=== PATIENT | female | born 1980 | race Caucasian/White ===

== ENCOUNTER 2021-04-07 14:32 | Outpatient (REF) | payer BC, SELFPAY | END 2021-04-07 14:33 | disposition home or self-care (01) | LOC: HO.SCI 14:32 | PROVIDERS: Visit Provider Nurse Practitioner Family | DX: Z13.89 Encounter for screening for other disorder (principal) ==

== ENCOUNTER 2021-04-12 17:51 | Outpatient (REF) | payer BC, SELFPAY ==
--- NOTE | ~2021-04-12 | MR_ITS ---
MR BRAIN WITHOUT AND WITH CONTRAST CLINICAL INFORMATION: Hallucinations. EEG demonstrating bilateral temporal sharp waves. COMPARISON: None available. TECHNIQUE: Multiplanar, multisequence MRI of the brain was obtained before and after the intravenous administration of 10 mL Gadavist. FINDINGS: There is no pathologic intracranial enhancement. No parenchymal signal abnormality. There is no hydrocephalus, extra-axial surface collection, or herniation. The major flow voids at the skull base are preserved. There is no acute infarct on diffusion-weighted imaging. There is no intracranial hemorrhage on the gradient recalled echo acquisition. The midline structures are normal. The cerebellar tonsils are normally positioned. The cerebellum and brainstem are normal. The craniocervical junction is normal. Osseous marrow signal intensity is homogenous. The visualized soft tissues are unremarkable. MR/MR head/brain wo/w con IMPRESSION: Unremarkable MRI of the brain. Of note, no coronal FLAIR imaging was obtained, limiting assessment of the temporal lobes. If there is continued clinical concern for a temporal lobe seizure focus, the patient can return for coronal T2 and coronal FLAIR imaging.
== END 2021-04-12 17:52 | disposition home or self-care (01) ==
LOC: HO.MRI 17:51
PROVIDERS: Visit Provider Nurse Practitioner Family
DX: R44.3 Hallucinations, unspecified (principal); R94.31 Abnormal electrocardiogram [ECG] [EKG]
CPT/HCPCS: 70553; A9585

== ENCOUNTER 2021-04-29 18:19 | Outpatient (REF) | payer BC, SELFPAY | END 2021-04-29 18:20 | disposition home or self-care (01) | LOC: HO.MRI 18:19 | PROVIDERS: Visit Provider Nurse Practitioner Family | DX: Z13.89 Encounter for screening for other disorder (principal) ==

== ENCOUNTER → 2021-12-08 08:21 | Outpatient (BNVA) | payer BC, SELFPAY | PROVIDERS: Visit Provider Nurse Practitioner Family | DX: Z13.89 Encounter for screening for other disorder (principal) ==

== ENCOUNTER → 2022-10-12 14:39 | Outpatient (BNVA) | payer BC, SELFPAY | PROVIDERS: Visit Provider Nurse Practitioner Family | DX: Z13.89 Encounter for screening for other disorder (principal) ==

== ENCOUNTER 2023-04-25 14:28 | Outpatient (AMB) | payer BC, SELFPAY ==
--- NOTE | 2023-04-25 14:41 | MHC.OFFVIS ---
Intake Vital Signs 04/25/23 14:57 Weight 222 lb BP 120/84 Blood Pressure Location Rt brachial Position Sitting Pulse 74 Pulse Source Pulse Oximeter Pulse Oximetry (%) 100 Oxygen Delivery Method Room Air Intake Visit Reasons: 6m Follow up Intake Note: Patient present today for 6 month Hypersomnia follow up visit. Patient states the medication seems to be working. She has been having more nightmares. Allergies Sulfa (Sulfonamide Antibiotics) Allergy (Mild, Verified 04/25/23 14:45) Hives Medication List - Last Reconciled 04/25/23 by Debi Stallings, CHARLES lamotrigine 100 mg PO BID 30 days methylphenidate HCl (Ritalin) 10 mg PO QPM 60 days methylphenidate HCl (Ritalin LA) 20 mg PO QAM 60 days HPI HPI Comments History of Present Illness Details 42-yr-old female presents for f/u visit. Pt denies any significant interval medical changes. No interval seizure like activity. Pt cognition is stable on current methylphenidate dose. She can sometimes be more unfocused- thinks maybe r/t stress, depression, etc. Has been having more vivid dreams and bad dreams. [facility] Medical History Dyslipidemia Surgical History No pertinent past surgical history Family History Father HTN (hypertension) Mother Diabetes HTN (hypertension) Social History Alcohol intake: current Alcohol intake frequency: holidays/special occasions only Patient Tobacco Use Status: Never used Tobacco Review of Systems Const All systems reviewed & are unremarkable except as noted in HPI and below Physical Exam Vital Signs: Last Vital Signs Pulse 74 04/25/23 14:57 BP 120/84 04/25/23 14:57 Pulse Ox 100 04/25/23 14:57 Oxygen Delivery Method Room Air 04/25/23 14:57 Const General: cooperative and no acute distress Orientation/consciousness: patient oriented x3 HEENT Head: Yes normocephalic Resp Effort & Inspection: normal respiratory effort and able to speak in complete sentences Neuro General: patient oriented x3, gait normal and CN's II-XI intact bilaterally Cognition (Neuro): normal cognition Motor exam (neuro): 5/5 motor strength present throughout Psych Appearance: grossly normal Mental Status: mental status grossly normal Speech and movement: Normal speech and movement present Affect: normal affect Attitude: cooperative Thought process: Normal thought process present Thought content: Normal thought content present Insight: Good insight present (Psych) Judgement: Good judgement present (Psych) Assessment & Plan Assessment & Plan (1) Attention deficit hyperactivity disorder (ADHD): Code(s): F90.9 - Attention-deficit hyperactivity disorder, unspecified type (2) Depression: Code(s): F32.A - Depression, unspecified (3) Nightmares: Code(s): F51.5 - Nightmare disorder (4) Hypersomnia: Code(s): G47.10 - Hypersomnia, unspecified (5) Seizure: Code(s): R56.9 - Unspecified convulsions Plan For hypersomnia/ADHD: Continue Methylphenidate LA 20mg qam. Continue Methylphenidate 10mg qpm prn. For mood: Will refer to psychology. ? For seizures: Continue Lamotrigine 100mg bid. Check CBC, CMP, lamotrigine levels f/u in 6 months or sooner prn Orders: Orders Complete Blood Count Auto Diff 04/25/23 R56.9 - Unspecified convulsions Lamotrigine Lamictal 04/25/23 R56.9 - Unspecified convulsions Comprehensive Met. Panel 04/25/23 R56.9 - Unspecified convulsions Referrals Psychology Referral F32.A - Depression, unspecified, F51.5 - Nightmare disorder, F90.9 - Attention-deficit hyperactivity disorder, unspecified type Coding Level of Care Code Est Pt Level 4 (21273) Diagnoses Attention deficit hyperactivity disorder (ADHD) F90.9 Depression F32.A Nightmares F51.5 Hypersomnia G47.10 Seizure R56.9
[2023-04-25 14:57] VITALS: BP 120/84; PULSE 74; O2SAT 100
== END 2023-04-25 15:27 | disposition home or self-care (01) ==
PROVIDERS: Visit Provider Nurse Practitioner Family
DX: F90.9 Attention-deficit hyperactivity disorder, unspecified type (principal); F32.A Depression, unspecified; F51.5 Nightmare disorder; G47.10 Hypersomnia, unspecified; R56.9 Unspecified convulsions
CPT/HCPCS: 99214

== ENCOUNTER → 2023-04-25 14:28 | Outpatient (BNVA) | payer BC, SELFPAY | PROVIDERS: Visit Provider Nurse Practitioner Family ==

== ENCOUNTER 2023-10-25 13:01 | Outpatient (AMB) | payer BC, SELFPAY ==
--- NOTE | 2023-10-25 13:05 | A.OFFVIS_ITS ---
Vital Signs 10/25/23 13:06 Height 5 ft 9 in Weight 224 lb BMI 33.1 BP 138/74 Blood Pressure Location Rt brachial Position Sitting Pulse 73 Pulse Source Pulse Oximeter Pulse Oximetry (%) 98 Oxygen Delivery Method Room Air Intake Visit Reasons: 6 mnts f/u appt - Confirmed Intake Note: Patient presents for 6 months follow up. Patient is doing ok meds are working very well. Allergies Sulfa (Sulfonamide Antibiotics) Allergy (Mild, Verified 10/25/23 13:07) Hives HPI Comments Details: 43-yr-old female presents for f/u visit. Pt denies any significant interval medical changes. She had some increased stress as her mom had strokes, and is now living with her. She can be anxious at times. She did have a psychiatric consult at [facility] for input in optimizing pt's mood s/s, recomendations where to start w/ trial of escitalopram and prn hydroxyzine. Her sleep has been ok, but can still have vivid and nightmares. Her ADHD s/s are well-controlled on Methylphenidate LA 20mg qam and IR 10mg prn. She did see a psychiatrist. She is seeing a therapist, who suggested trying lucid dreaming tx. [facility] Medical History Dyslipidemia Surgical History No pertinent past surgical history Family History Father HTN (hypertension) Mother Diabetes HTN (hypertension) Social History Alcohol intake: current Alcohol intake frequency: holidays/special occasions only Patient Tobacco Use Status: Never used Tobacco Physical Exam Vital Signs: Last Vital Signs Pulse 73 10/25/23 13:06 BP 138/74 10/25/23 13:06 Pulse Ox 98 10/25/23 13:06 Oxygen Delivery Method Room Air 10/25/23 13:06 BMI result Body Mass Index 33.1 Const General: cooperative and no acute distress Orientation/consciousness: patient oriented x3 Resp Effort & Inspection: normal respiratory effort and able to speak in complete sentences Neuro General: patient oriented x3 Cranial nerves: Yes CN's II-XII intact bilaterally Cognition (Neuro): normal cognition Psych Appearance: grossly normal Mental Status: mental status grossly normal Speech and movement: Normal speech and movement present Affect: normal affect Attitude: cooperative Assessment & Plan Assessment & Plan (1) Seizure: Code(s): R56.9 - Unspecified convulsions Category: Medical (2) Hypersomnia: Code(s): G47.10 - Hypersomnia, unspecified Category: Medical (3) Attention deficit hyperactivity disorder (ADHD): Code(s): F90.9 - Attention-deficit hyperactivity disorder, unspecified type Category: Medical (4) Depression: Code(s): F32.A - Depression, unspecified Category: Medical (5) Nightmares: Code(s): F51.5 - Nightmare disorder Category: Medical (6) Anxiety: Code(s): F41.9 - Anxiety disorder, unspecified Category: Medical Plan For hypersomnia/ADHD: Continue Methylphenidate LA 20mg qam. Continue Methylphenidate 10mg qpm prn. ? For mood: Reviewed [facility] psychiatry consult. Start Escitalopram 5mg qd x's 1 wk, then increase to 10mg qd. Trial Hydroxyzine 10mg bid prn anxiety. ? For seizures: Continue Lamotrigine 100mg bid. Check CBC, CMP, lamotrigine levels- in 1-2 months. ? f/u in 6 months or sooner prn Medications: New escitalopram oxalate 5mg qd x's 7 days, then 1 tab qd orally daily; 30 tabs 3RF 30 days hydroxyzine HCl 10 mg PO BID PRN 30 tabs 1RF itching 30 days Refilled methylphenidate HCl LA (Ritalin LA) For ADHD 20 mg PO QAM 60 caps 0RF 60 days methylphenidate HCl (Ritalin) for ADHD 10 mg PO QPM 60 tabs 0RF 60 days
[2023-10-25 13:06] VITALS: BP 138/74; PULSE 73; O2SAT 98; BMI 33.1
== END 2023-10-25 13:49 | disposition home or self-care (01) ==
PROVIDERS: Visit Provider Nurse Practitioner Family
DX: R56.9 Unspecified convulsions (principal); G47.10 Hypersomnia, unspecified; F90.9 Attention-deficit hyperactivity disorder, unspecified type; F32.A Depression, unspecified; F51.5 Nightmare disorder; F41.9 Anxiety disorder, unspecified
CPT/HCPCS: 99214

== ENCOUNTER → 2023-10-25 13:01 | Outpatient (BNVA) | payer BC, SELFPAY | PROVIDERS: Visit Provider Nurse Practitioner Family ==

== ENCOUNTER 2024-04-29 13:13 | Outpatient (AMB) | payer BC, SELFPAY ==
--- NOTE | 2024-04-29 13:13 | MHC.OFFVIS ---
Vital Signs 04/29/24 13:14 Height 5 ft 9 in Weight 220 lb BMI 32.5 BP 124/82 Blood Pressure Location Rt brachial Position Sitting Intake Visit Reasons: Follow up Intake Note: Patient presents for follow up. Allergies Sulfa (Sulfonamide Antibiotics) Allergy (Mild, Verified 04/29/24 13:17) Hives Medication List - Last Reconciled 04/29/24 by CHARLES Robbins escitalopram oxalate 5mg qd x's 7 days, then 1 tab qd orally daily; 30 days hydroxyzine HCl 10 mg PO BID PRN 30 days lamotrigine 100 mg PO BID 30 days methylphenidate HCl (Ritalin) 10 mg PO QPM 60 days methylphenidate HCl LA (Ritalin LA) 20 mg PO QAM 60 days HPI Comments Details: 43-yr-old female presents for f/u visit of sleep issues, seizure. Pt denies any significant interval medical changes. She still has some increased stress, as her mother has moved into her home and she is awaiting her roommate to move out. Thus, she herself has been sleeping on her couch and sleep schedule is now based on her mother's schedule- as pt is helping her mom get ready for bed. Her ADHD s/s are well-controlled at work on Methylphenidate LA 20mg qam and IR 10mg prn, though there may be moments where she is not productive but usually related to just general day to life life. She has tolerated starting escitaloram well- her mood is good. Tolerating well. She has used hydroxyzine just a few times for some increased anxiety. She continues to have vivid dreams- but no recent nightmares. The escitalopram seems to have reduced the more bothersome bad dreams. She has not had any seizure like activity. She did have a one-time psychiatry consult. She does need a new therapist, as her previous one was focusing too much on lucid dreaming tx. [facility] Medical History Dyslipidemia Surgical History No pertinent past surgical history Family History Father HTN (hypertension) Mother Diabetes HTN (hypertension) Social History Alcohol intake: current Alcohol intake frequency: holidays/special occasions only Patient Tobacco Use Status: Never used Tobacco Physical Exam Vital Signs: Last Vital Signs BP 124/82 04/29/24 13:14 BMI result Body Mass Index 32.5 Const General: cooperative and no acute distress Orientation/consciousness: patient oriented x3 Resp Effort & Inspection: normal respiratory effort and able to speak in complete sentences Neuro General: patient oriented x3 Cranial nerves: Yes CN's II-XII intact bilaterally Cognition (Neuro): normal cognition Psych Appearance: grossly normal Mental Status: mental status grossly normal Speech and movement: Normal speech and movement present Affect: normal affect Attitude: cooperative Assessment & Plan Assessment & Plan (1) Seizure: Code(s): R56.9 - Unspecified convulsions Category: Medical (2) Hypersomnia: Code(s): G47.10 - Hypersomnia, unspecified Category: Medical (3) Attention deficit hyperactivity disorder (ADHD): Code(s): F90.9 - Attention-deficit hyperactivity disorder, unspecified type Category: Medical (4) Depression: Code(s): F32.A - Depression, unspecified Category: Medical (5) Nightmares: Code(s): F51.5 - Nightmare disorder Category: Medical (6) Anxiety: Code(s): F41.9 - Anxiety disorder, unspecified Category: Medical Plan For hypersomnia/ADHD: Continue Methylphenidate LA 20mg qam. Continue Methylphenidate 10mg qpm prn. ? For mood: Previously reviewed [facility] psychiatry consult. Continue Escitalopram 10mg qd. Continue Hydroxyzine 10mg bid prn anxiety. ? For seizures: Continue Lamotrigine 100mg bid. Check CBC, CMP, lamotrigine levels. ? Pt to follow-up in 6 months or sooner prn. Orders: Orders Comprehensive Met. Panel 04/29/24 R56.9 - Unspecified convulsions Lamotrigine Lamictal 04/29/24 R56.9 - Unspecified convulsions Complete Blood Count Auto Diff 04/29/24 R56.9 - Unspecified convulsions Medications: Changed From escitalopram oxalate 5mg qd x's 7 days, then 1 tab qd orally daily; 30 days 30 tabs 3RF To escitalopram oxalate 10 mg PO DAILY 90 tabs 1RF 90 days Coding Level of Care Code Est Pt Level 4 (01717) Diagnoses Seizure R56.9 Hypersomnia G47.10 Attention deficit hyperactivity disorder (ADHD) F90.9 Depression F32.A Nightmares F51.5 Anxiety F41.9
[2024-04-29 13:14] VITALS: BP 124/82; BMI 32.5
== END 2024-04-29 14:32 | disposition home or self-care (01) ==
PROVIDERS: Visit Provider Nurse Practitioner Family
DX: R56.9 Unspecified convulsions (principal); G47.10 Hypersomnia, unspecified; F90.9 Attention-deficit hyperactivity disorder, unspecified type; F32.A Depression, unspecified; F51.5 Nightmare disorder; F41.9 Anxiety disorder, unspecified
CPT/HCPCS: 99214

== ENCOUNTER → 2024-04-29 13:13 | Outpatient (BNVA) | payer BC, SELFPAY | PROVIDERS: Visit Provider Nurse Practitioner Family ==

== ENCOUNTER 2024-10-29 10:08 | Outpatient (AMB) | payer BC, SELFPAY ==
--- NOTE | 2024-10-29 10:19 | MHC.OFFVIS ---
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 Pt denies any significant interval medical changes. She still has some increased stress, as her mother moved into her home and she is still awaiting her roommate to move out- but the roommate is now moving out soon. so pt will again be able to sleep in her bedroom. Her ADHD s/s are well-controlled at work on Methylphenidate LA 20mg qam and IR 10mg prn. Tries to manage distractions. She is still tolerating escitaloram well- her mood is good. She has not needed to use hydroxyzine recently. She continues to have vivid dreams- but no recent severe nightmares. The escitalopram still seems to have reduced the more bothersome bad dreams. She has not had any seizure like activity. She did have a one-time psychiatry consult. She does have a new therapist, who she likes. [facility] Medical History Dyslipidemia Surgical History No pertinent past surgical history Family History Father HTN (hypertension) Mother Diabetes HTN (hypertension) Social History Alcohol intake: current Alcohol intake frequency: holidays/special occasions only Patient Tobacco Use Status: Never used Tobacco Physical Exam Vital Signs: Last Vital Signs Pulse 87 10/29/24 10:21 BP 130/70 10/29/24 10:21 Pulse Ox 97 10/29/24 10:21 Oxygen Delivery Method Room Air 10/29/24 10:21 BMI result Body Mass Index 32.8 Const General: cooperative and no acute distress Orientation/consciousness: patient oriented x3 Resp Effort & Inspection: normal respiratory effort and able to speak in complete sentences Neuro General: patient oriented x3 Cranial nerves: Yes CN's II-XII intact bilaterally Cognition (Neuro): normal cognition Psych Appearance: grossly normal Mental Status: mental status grossly normal Speech and movement: Normal speech and movement present Affect: normal affect Attitude: cooperative Assessment & Plan Assessment & Plan (1) Seizure: Code(s): R56.9 - Unspecified convulsions Category: Medical (2) Hypersomnia: Code(s): G47.10 - Hypersomnia, unspecified Category: Medical (3) Attention deficit hyperactivity disorder (ADHD): Code(s): F90.9 - Attention-deficit hyperactivity disorder, unspecified type Category: Medical (4) Depression: Code(s): F32.A - Depression, unspecified Category: Medical (5) Nightmares: Code(s): F51.5 - Nightmare disorder Category: Medical (6) Anxiety: Code(s): F41.9 - Anxiety disorder, unspecified Category: Medical Plan For hypersomnia/ADHD: Continue Methylphenidate LA 20mg qam. Continue Methylphenidate 10mg qpm prn. ? For mood: Previously reviewed [facility] psychiatry consult. Continue Escitalopram 10mg qd. Continue Hydroxyzine 10mg bid prn anxiety. ? For seizures: Continue Lamotrigine 100mg bid. Check CBC, CMP, lamotrigine levels- we will mail lab slips patient ? Pt to follow-up in 6 months or sooner prn. Orders: Orders Complete Blood Count Auto Diff Today R56.9 - Unspecified convulsions Lamotrigine Lamictal Today R56.9 - Unspecified convulsions Comprehensive Met. Panel Today R56.9 - Unspecified convulsions Medications: Refilled lamotrigine 100 mg PO BID 30 days 60 tabs 6RF methylphenidate HCl (Ritalin) for ADHD 10 mg PO QPM 60 days 60 tabs 0RF methylphenidate HCl LA (Ritalin LA) For ADHD 20 mg PO QAM 60 days 60 caps 0RF Coding Level of Care Code Est Pt Level 4 (33804) Diagnoses Seizure R56.9 Hypersomnia G47.10 Attention deficit hyperactivity disorder (ADHD) F90.9 Depression F32.A Nightmares F51.5 Anxiety F41.9
[2024-10-29 10:21] VITALS: BP 130/70; PULSE 87; O2SAT 97; BMI 32.8
--- OUTSIDE RECORDS SUMMARY | 2024-10-29 11:48 | XMS_ITS | Data Portability ---
Author Organization [facility], [address] Address [address] [place] [address] Assessment No assessment recorded. Plan of Treatment Reminders Order Date Submit Date Provider Last Modified By Organization Details Last Modified Time Details Appointments None recorded. Lab None recorded. Referral otolaryngol ogist referral - Ongoing ear pain , has been treated with antibiotic and steroid in the past 2022 023 [email or web address] [facility] , [address], [place], [address], 3 18:17:09 Procedures None recorded. Surgeries None recorded. Imaging None recorded. Medication Orders amoxicillin 875 mg-potassiu m clavulanate 125 mg tablet 2022 023 [facility] #1130, [phone] [place], [address], 3 08:17:34 fexofenadin e-pseudoeph edrine ER 180 mg-240 mg tablet,ext. release 24 hr 2022 023 [facility] #1130, [phone] [place], [address], 3 08:32:20 prednisone 20 mg tablet 2022 023 [facility] #1130, [phone] [place], [address], 3 08:32:19 Allergy Relief (fluticason e) 50 mcg/actuati on nasal spray,suspe nsion 2022 023 [facility]armacy #5855, [phone] [place], [address], 08:32:19 Patient TargetsNo targets recorded. Patient Instructions Encounter Date Encounter Id Patient Instructions Last Modified By Organization Details Last Modified Time 12/15/2022 [id number] earache: care instructions Not available 12/15/2022 08:32:16 ear infection (otitis media): care instructions Not available 12/15/2022 08:32:15 Sinusitis is an infection of the lining of the sinus cavities in your head. Sinusitis often follows a cold. It causes pain and pressure in your head and face. In most cases, sinusitis gets better on its own in 1 to 2 weeks. But some mild symptoms may last for several weeks. Sometimes antibiotics are needed. if you are having problems. It's also a good idea to know your test results and keep a list of the medicines you take. How can you care for yourself at home? Take an sfdd-pjw-jbdqutm pain medicine. Avoid Ibuprofen, Aleve and Aspirin if . If the doctor prescribed antibiotics, take them as directed. Do not stop taking them just because you feel better. You need to take the full course of antibiotics. Be careful when taking bvss-deu-uiigncz cold or influenza (flu) medicines and Tylenol at the same time. Many of these medicines have acetaminophen, which is Tylenol. Read the labels to make sure that you are not taking more than the recommended dose. Too much acetaminophen (Tylenol) can be harmful. Breathe warm, moist air from a steamy shower, a hot bath, or a sink filled with hot water. Avoid cold, dry air. Using a humidifier in your home may help. Follow the directions for cleaning the machine. Use saline (saltwater) nasal washes. This can help keep your nasal passages open and wash out mucus and bacteria. You can buy saline nose drops at a grocery store or drugstore. Or you can make your own at home by adding 1 teaspoon (5 millilitres) of salt and 1 teaspoon (5 millilitres) of baking soda to 2 cups (500 mL) of distilled water. If you make your own, fill a bulb syringe with the solution, insert the tip into your nostril, and squeeze gently. Blow your nose. Put a hot, wet towel or a warm gel pack on your face 3 or 4 times a day for 5 to 10 minutes each time. Try a decongestant nasal spray like oxymetazoline (Drixoral). Do not use it for more than 3 days in a row. Using it for more than 3 days can make your congestion worse. Not available 12/15/2022 08:32:14 12/21/2022 [id number] earache: care instructions [email or web address] Not available 12/21/2022 08:17:32 ear infection (otitis media): care instructions [email or web address] Not available 12/21/2022 08:17:32 An ear infection may start with a cold and affect the middle ear (otitis media). It can hurt a lot. Most ear infections clear up on their own in a couple of days and do not need antibiotics. Also, antibiotics do not work against viruses, which may be the cause of your infection. Regular doses of pain relievers are the best way to reduce your fever and help you feel better. How can you care for yourself at home? Take pain medicines exactly as directed. If the doctor gave you a prescription medicine for pain, take it as prescribed. If you are not taking a prescription pain medicine, take an fzzh-uvo-zavzdgd medicine, such as acetaminophen (Tylenol), ibuprofen (Advil, Motrin), or naproxen (Aleve). Read and follow all instructions on the label. Do not take two or more pain medicines at the same time unless the doctor told you to. Many pain medicines have acetaminophen, which is Tylenol. Too much acetaminophen (Tylenol) can be harmful. Plan to take a full dose of pain reliever before bedtime. Getting enough sleep will help you get better. Try a warm, moist face cloth on the ear. It may help relieve pain. If your doctor prescribed antibiotics, take them as directed. Do not stop taking them just because you feel better. You need to take the full course of antibiotics. Not available 12/21/2022 08:17:58 Sinusitis is an infection of the lining of the sinus cavities in your head. Sinusitis often follows a cold. It causes pain and pressure in your head and face. In most cases, sinusitis gets better on its own in 1 to 2 weeks. But some mild symptoms may last for several weeks. Sometimes antibiotics are needed. if you are having problems. It's also a good idea to know your test results and keep a list of the medicines you take. How can you care for yourself at home? Take an wcqb-qtx-eavmusa pain medicine. Avoid Ibuprofen, Aleve and Aspirin if . If the doctor prescribed antibiotics, take them as directed. Do not stop taking them just because you feel better. You need to take the full course of antibiotics. Be careful when taking xahe-ugy-utfkovw cold or influenza (flu) medicines and Tylenol at the same time. Many of these medicines have acetaminophen, which is Tylenol. Read the labels to make sure that you are not taking more than the recommended dose. Too much acetaminophen (Tylenol) can be harmful. Breathe warm, moist air from a steamy shower, a hot bath, or a sink filled with hot water. Avoid cold, dry air. Using a humidifier in your home may help. Follow the directions for cleaning the machine. Use saline (saltwater) nasal washes. This can help keep your nasal passages open and wash out mucus and bacteria. You can buy saline nose drops at a grocery store or drugstore. Or you can make your own at home by adding 1 teaspoon (5 millilitres) of salt and 1 teaspoon (5 millilitres) of baking soda to 2 cups (500 mL) of distilled water. If you make your own, fill a bulb syringe with the solution, insert the tip into your nostril, and squeeze gently. Blow your nose. Put a hot, wet towel or a warm gel pack on your face 3 or 4 times a day for 5 to 10 minutes each time. Try a decongestant nasal spray like oxymetazoline (Drixoral). Do not use it for more than 3 days in a row. Using it for more than 3 days can make your congestion worse. Not available 12/21/2022 08:17:31 01/22/2023 [id number] eustachian tube problems: care instructions [email or web address] Not available 01/22/2023 18:13:00 Based on your physical exam and presentation, you are being diagnosed with Eustachian Tube Dysfunction. This occurs when fluid/mucous or swelling closes off the tubes that help the ears equalize the pressure. The following are my recommendations to help with these symptoms and get this condition to resolve: 1. Saline Nasal [place] 2. Antihistamines like Claritin, Zyrtec, Addis, or benadryl 3. Tylenol for discomfort and help with the inflammation. 4. Heating pad or warm rice back to help with the discomfort 5. You can try sudafed, but I would not take this more than 5 days. This may overly dry out your throat and chest and cause symptoms. Unfortunately this condition may last 1-5 months, but usually resolves on its own. If this does not improve in 2-3 months - an ENT would be the appropriate next step. Sometimes people will require Tubes to be placed temporarily. Thank you for using [facility], if you have any questions or concerns please do not hesitate to call or reach out to us. 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 Medical Equipment None Reported. Allergies Allergen ID Allergen Name Allergen Category Reaction Reaction Severity Criticality Documentation Date Start Date Code Code System Note Provider Name and Address Organization Details Recorded Time 926917 Substance with sulfonami de structure and antibacte rial mechanism of action (substanc e) medicatio n rash Not available Not available 12/15/2022 [id number] SNOMED BERNARD Asher [facility] 3 08:23:11 Medications Name Sig Start Date Stop Date Status Note LastModified by Organization Details LastModified Time methylphenid ate 10 mg tablet TAKE 1 TABLET BY MOUTH EVERY EVENING FOR 60 DAYS FOR ADHD active Not Available Not Available No t Available prednisone 20 mg tablet Take 2 tablets every day by oral route in the morning for 4 days. 2022 active Not Available Not Available Not Avai lable fluticasone propionate 50 mcg/actuatio n nasal spray,suspen fernando SPRAY 1 SPRAY BY INTRANASAL ROUTE EVERY DAY DIRECTED FOR 30 DAYS active Not Available Not Available Not Available lamotrigine 100 mg tablet TAKE 1 TABLET BY MOUTH 2 TIMES A DAY FOR 30 DAYS active Not Available Not Available Not Available amoxicillin 875 mg-potassium clavulanate 125 mg tablet Take 1 tablet twice a day by oral route with meals for 10 days. 2022 active Not Available Not Available Not Avai lable methylphenid ate LA 20 mg biphasic 50-50 capsule,exte nded release TAKE 1 CAPSULE BY MOUTH EVERY MORNING active Not Available Not Available No t Available fexofenadine -pseudoephed rine ER 180 mg-240 mg tablet,ext.r elease 24 hr Take 1 tablet every day by oral route in the evening for 10 days. 2022 active Not Available Not Available Not Avai lable Vitals Date Recorded Pain severity - 0-10 verbal numeric rating [Score] - Reported Body height Body mass index (BMI) Body weight Oxygen saturation Oxygen saturation in Arterial blood by Pulse oximetry Heart rate Respiratory rate Body temperature Systolic blood pressure Diastolic blood pressure Provider Name and Address Organization Details Last Updated DateTime 3 2 177.8 cm 30.1 kg/m2 21510.4 g 100 % 100 % 70 /min 18 /min 97.7 [degF] 125 mm[Hg] 84 mm[Hg] VAL Knox [facility] 3 08:25:48 Date Recorded Body height Body mass index (BMI) Body weight Pain severity - 0-10 verbal numeric rating [Score] - Reported Oxygen saturation Oxygen saturation in Arterial blood by Pulse oximetry Heart rate Respiratory rate Body temperature Systolic blood pressure Diastolic blood pressure Provider Name and Address Organization Details Last Updated DateTime 3 177.8 cm 30.1 kg/m2 32539.4 g 2 100 % 100 % 77 /min 18 /min 98 [degF] 133 mm[Hg] 86 mm[Hg] VAL HELLERRyan [facility] - [facility] 3 08:09:48 Date Recorded Body height Body mass index (BMI) Body weight Pain severity - 0-10 verbal numeric rating [Score] - Reported Respiratory rate Oxygen saturation Oxygen saturation in Arterial blood by Pulse oximetry Heart rate Body temperature Systolic blood pressure Diastolic blood pressure Provider Name and Address Organization Details Last Updated DateTime 3 177.8 cm 30.1 kg/m2 53825.4 g 4 19 /min 99 % 99 % 77 /min 98 [degF] 130 mm[Hg] 80 mm[Hg] JULIETNITA SUAREZ [facility] 3 17:48:24 Social History Question Answer Notes LastModified by [employer] ion Details LastModified Time Tobacco Smoking Status Never Smoker VAL jones [facility] 12/15/2022 08:24:26 What Is Your Level Of Alcohol Consumption? Occasional Information not available 12/15/2022 How Many Times Per Week Do You Consume Alcohol? 1-2 Times Per Week Information not available 12/15/2022 Do You Use Any Illicit Or Recreational Drugs? No Information not available 12/15/2022 Have You Recently Traveled Abroad? No Information not available 12/15/2022 Do You Or Have You Ever Used Any Other Forms Of Tobacco Or Nicotine? No Information not available 12/15/2022 Sex: Unknown Functional Status None recorded. Mental Status None recorded. Family History Relationship Description Onset Age of this Age Resolved Age Notes LastModified by Organization Details LastModified Time Father Heart disease Not available 2022 08:24:01 Mother Hypertensive disorder Not available 2022 08:24:07 Mother Hypercholest erolemia Not available 2022 08:24:12 Brother Hypertensive disorder Not available 2022 08:24:15 Medical History No medical history recorded. Gynecological History Statement/Question Response Date of LMP 11/24/2022 Is there any chance of ? No LMP Definite Obstetrics History GPAL:G 0 P 0 0 0 0 Immunizations Vaccine Type Date Status Note Provider Nam e and Address Organization Details Recorded Time COVID-19, mRNA, LNP-S, PF, 100 mcg/0.5mL dose or 50 mcg/0.25mL dose 10/13/2020 completed VAL DEPINTO null, PA - [facility] 12/15/2022 08:22:49 COVID-19, mRNA, LNP-S, PF, 100 mcg/0.5mL dose or 50 mcg/0.25mL dose 11/10/2020 completed VALEmily INMANINTO null, PA - [facility] 12/15/2022 08:22:49 COVID-19, mRNA, LNP-S, PF, 100 mcg/0.5mL dose or 50 mcg/0.25mL dose 06/22/2021 completed VALEmily INMANINTO null, PA - [facility] 12/15/2022 08:22:49 Past Encounters Encounter ID Performer Location Encounter Start Date Encounter Closed Date Diagnosis/Indication Diagnosis SNOMED-CT Code Diagnosis ICD10 Code Diagnosis Note [id number] [address] [place] [address] 05/26/2016 12:28:54 05/26/2016 13:50:14 [id number] Noé Coates [facility] [address] [place] [address] 12/15/2022 08:17:40 12/15/2022 08:34:22 Acute sinusitis 01087607 J01.90 [id number] Noé Coates [place] [address] [place] [address] 12/21/2022 08:03:44 12/21/2022 08:24:32 Acute sinusitis 61127823 J01.90 Acute sero us otitis media of bilateral ears [id number] 598440 H65.03 [id number] [place] [address] [place] [address] 01/22/2023 16:47:00 01/22/2023 18:17:08 Dysfunction of left eustachian tube 6907733982 241832 H69.92 Health Concerns Section Related Observation LastModified by Organization Detai ls LastModified Time None Recorded Concern Status LastModified by Organization Details LastModified Time None Recorded Advance Directives Directive None Recorded Payers Encounter Date Sequence Insurance Name Policy Number Policy Huang Covered Member ID Huang Member ID Guarantor Name 12/15/2022 1 [place] [facility] [place] [facility] [id number] Vanessa Williamson [id number] Vanessa Williamson 12/21/2022 1 [place]: [facility] [place] [id number] Vanessa Williamson [id number] Vanessa Williamson 01/22/2023 1 [facility] [facility] [place] [id number] Vanessa Williamson [id number] Vanessa Williamson Notes Date Note Type Note Provider Name and Address Organization Details Recorded Time 12/15/2022 text/html Ear Pain Brief HPIReported bypatient.Location:left Onset/Timing:new onset; started 2days ago Duration:occurs daily; constant pain Quality:no itching; no discharge from the ears; no burning;aching pain;dull pain Severity:getting worse; no fever; no interference with sleep;interferes with daily activities Context:no recent trauma; no recent ear infection; no recent swimming; no immunocompromise; no dental problems; no recent airplane travel; no scuba diving; non-smoker;recent URI Alleviating factors:nasal steroid spray Aggravating factors:cold weather; sinus infections; allergies Associated Symptoms:no cough; no jaw popping or clicking; No decreased appetite; no discharge from ear; no nasal discharge; no hearing loss; no sore throat; no dental pain; no jaw pain; no tinnitus;nasal congestion;sense of fullness/pressure; no decreased hearing; no muffled hearing Noé Coates NP [address] [place], [address], [place] - [facility] 12/15/2022 08:32:34 12/21/2022 text/html CongestionReport ed bypatient.Notes:nasal congestion with post nasal drip x 3 days. denies nay fever or fever with chills. no SOB or respiratory distress.Ear Pain Brief HPIReported bypatient.Location:pain radiates to neck; bilateral Onset/Timing:intermitte nt pain; gradual onset Duration:occurs daily; sensation/episode variable length Quality:aching pain;sharp pain Severity:getting worse; current pain 5/10 Context:recent ear infection Alleviating factors:ototopical antibiotics: ; nasal steroid spray Aggravating factors:sinus infections; allergies; irrigation of ear Associated Symptoms:Cough;nasal congestion;nasal discharge Noé Coates NP [address] [place], [address], [facility] 12/21/2022 08:18:21 01/22/2023 text/html Ear Pain Brief HPIReported bypatient.Onset/Timing: sudden onset Quality:no itching; no discharge from the ears; no burning Severity:no fever Context:no recent URI; no recent ear infection; no recent swimming Associated Symptoms:no cough; no jaw popping or clicking; no discharge from ear; no nasal congestion; no nasal discharge; no sense of fullness; no sore throat; no jaw pain; no tinnitus; no decreased hearing Kiana Seth NP [address] [place], [address], [facility] 01/22/2023 18:19:01 OBGyn Episode No OBEpisode recorded.
== END 2024-10-29 11:28 | disposition home or self-care (01) ==
LOC: HO.HSMS 10:09
PROVIDERS: Visit Provider Nurse Practitioner Family
DX: R56.9 Unspecified convulsions (principal); G47.10 Hypersomnia, unspecified; F90.9 Attention-deficit hyperactivity disorder, unspecified type; F32.A Depression, unspecified; F51.5 Nightmare disorder; F41.9 Anxiety disorder, unspecified
CPT/HCPCS: 99214

== ENCOUNTER 2025-05-02 10:43 | Outpatient (REF) | payer BC, SELFPAY ==
--- OUTSIDE RECORDS SUMMARY | 2025-05-02 10:46 | XMS_ITS | Data Portability ---
Author Organization [facility], [address] Address [address] [place] [address] Assessment No assessment recorded. Plan of Treatment Reminders Order Date Submit Date Provider Last Modified By Organization Details Last Modified Time Details Appointments None recorded. Lab None recorded. Referral otolaryngol ogist referral - Ongoing ear pain , has been treated with antibiotic and steroid in the past 2022 023 [email or web address] [facility] , [address], [facility] [address], [place], [address], 3 18:17:09 Procedures None recorded. Surgeries None recorded. Imaging None recorded. Medication Orders amoxicillin 875 mg-potassiu m clavulanate 125 mg tablet 2022 023 [facility]/Pharmacy #1130, [phone] [place], [address], 3 08:17:34 fexofenadin e-pseudoeph edrine ER 180 mg-240 mg tablet,ext. release 24 hr 2022 023 [facility]/Pharmacy #1130, [phone] [place], [address], 3 08:32:20 prednisone 20 mg tablet 2022 023 [facility]/Pharmacy #1130, [phone] [place], [address], 3 08:32:19 Allergy Relief (fluticason e) 50 mcg/actuati on nasal spray,suspe nsion 2022 023 [facility]/Pharmacy #0525, [phone] [place], [address], 08:32:19 Patient TargetsNo targets recorded. Patient Instructions Encounter Date Encounter Id Patient Instructions Last Modified By Organization Details Last Modified Time 12/15/2022 [id number] earache: care instructions Not available 12/15/2022 08:32:16 [...] care for yourself at home? Take an rmph-inf-bvhyurh pain medicine. Avoid Ibuprofen, Aleve and Aspirin if . If the doctor prescribed antibiotics, take them as directed. Do not stop taking them just because you feel better. You need to take the full course of antibiotics. Be careful when taking ldjc-cel-oftypap cold or influenza (flu) medicines and Tylenol [...] congestion worse. Not available 12/15/2022 08:32:14 12/21/2022 [id number] earache: care instructions [email or web address] Not available 12/21/2022 [...] taking a prescription pain medicine, take an acvr-ork-qvflufj medicine, such as acetaminophen (Tylenol), ibuprofen (Advil, [...] to take the full course of antibiotics. [email or web address] Not available 12/21/2022 08:17:58 Sinusitis is an [...] care for yourself at home? Take an lsjz-fpt-ogoriih pain medicine. Avoid Ibuprofen, Aleve and Aspirin if . If the doctor prescribed antibiotics, take them as directed. Do not stop taking them just because you feel better. You need to take the full course of antibiotics. Be careful when taking xstg-hds-fkgckdd cold or influenza (flu) medicines and Tylenol [...] congestion worse. Not available 12/21/2022 08:17:31 01/22/2023 [id number] eustachian tube problems: care instructions [email or web address] Not available 01/22/2023 18:13:00 Based on your physical exam and presentation, you are being diagnosed with Eustachian Tube Dysfunction. This occurs when fluid/mucous or swelling closes off the tubes that help the ears equalize the pressure. The following are my recommendations to help with these symptoms and get this condition to resolve: 1. Saline Nasal [place] 2. Antihistamines like Claritin, Zyrtec, Addis, or [...] be placed temporarily. Thank you for using [facility], if you have any questions or concerns please do not hesitate to call or reach out to us. Not available 01/22/2023 18:08:00 Reason for Referral Circulator Referral fo r Dysfunction of left eustachian tube Ongoing ear pain , has been treated with antibiotic and steroid in the past Referring Physician: Kiana Seth, Urgent Care, Encounter Date: 01/22/2023 Problems Name Problem SNOMED Code Status Onset Date Resolution Date Notes Provider Name and Address Organization Details Recorded Time Attention deficit hyperactivity disorder 737754031 Active 2022 BERNARD Asher [facility] 3 08:23:39 Disorder of brain 68105575 Active 2022 BERNARD Ahn [facility] 3 17:44:13 Notes:hyper somnia Problem Notes None recorded. Medical Equipment None Reported. Allergies Allergen ID Allergen Name Allergen Category Reaction Reaction Severity Criticality Documentation Date Start Date Code Code System Note Provider Name and Address Organization Details Recorded Time 756651 Substance with sulfonami de structure and antibacte rial mechanism of action (substanc e) medicatio n rash Not available Not available 12/15/2022 [id number] SNOMED BERNARD Asher [facility] 3 08:23:11 [...] fluticasone propionate 50 mcg/actuatio n nasal spray,suspen frenando SPRAY 1 SPRAY BY INTRANASAL ROUTE EVERY [...] Heart rate Respiratory rate Body temperature Systolic And Diastolic Provider Name and Address Organization Details Last Updated DateTime 3 2 177.8 cm 30.1 kg/m2 81730.4 g 100 % 100 % 70 /min 18 /min 97.7 [degF] 125/84 mm[Hg] VAL WAGNER - [facility] 3 08:25:48 Date Recorded Body height Body mass index (BMI) Body weight Pain severity - 0-10 verbal numeric rating [Score] - Reported Oxygen saturation Oxygen saturation in Arterial blood by Pulse oximetry Heart rate Respiratory rate Body temperature Systolic And Diastolic Provider Name and Address Organization Details Last Updated DateTime 3 177.8 cm 30.1 kg/m2 10262.4 g 2 100 % 100 % 77 /min 18 /min 98 [degF] 133/86 mm[Hg] VAL GOODE [facility] - [facility] 3 08:09:48 Date Recorded Body height Body mass index (BMI) Body weight Pain severity - 0-10 verbal numeric rating [Score] - Reported Respiratory rate Oxygen saturation Oxygen saturation in Arterial blood by Pulse oximetry Heart rate Body temperature Systolic And Diastolic Provider Name and Address Organization Details Last Updated DateTime 3 177.8 cm 30.1 kg/m2 62390.4 g 4 19 /min 99 % 99 % 77 /min 98 [degF] 130/80 mm[Hg] JULIET SUAREZ [facility] 3 17:48:24 Social History Question Answer Notes LastModified by [employer] Details LastModified Time Tobacco Smoking Status Never Smoker VAL INMANLINO jones [facility] - [facility] 12/15/2022 08:24:26 Have You Recently Traveled Abroad? No Information not available 12/15/2022 Sex: Unknown Functional Status Question Answer Note LastModified by getupp Details LastModified Time How many times per week do you consume alcohol? 1-2 times per week Information not available 12/15/2022 Do you use any illicit or recreational drugs? No Information not available 12/15/2022 Do you or have you ever used any other forms of tobacco or nicotine? No Information not available 12/15/2022 What is your level of alcohol consumption? Occasional Information not available 12/15/2022 Mental Status None recorded. Family History Relationship [...] dose or 50 mcg/0.25mL dose 11/10/2020 completed VAL DEPINTO null, [place] - [facility] 12/15/2022 08:22:49 COVID-19, mRNA, LNP-S, PF, 100 mcg/0.5mL dose or 50 mcg/0.25mL dose 06/22/2021 completed VAL DEPINTO null, [place] - [facility] 12/15/2022 08:22:49 Past Encounters Encounter ID Performer Location Encounter Start Date Encounter Closed Date Diagnosis/Indication Diagnosis SNOMED-CT Code Diagnosis ICD10 Code Diagnosis IMO Codes Diagnosis Note [id number] [address] [facility] [address] [place] [address] 05/26/2016 12:28:54 05/26/2016 13:50:14 [id number] Noé Coates [facility] [address] [place] [address] 12/15/2022 08:17:40 12/15/2022 08:34:22 Acute sinusitis 38126649 J01.90 [id number] Noé [facility]ates NP [facility] [address] [place] [address] 12/21/2022 08:03:44 12/21/2022 08:24:32 Acute sinusitis 50427986 J01.90 Acute sero us otitis media of bilateral ears [id number] 478515 H65.03 [id number] [place] [address] [facility] [address] [facility] [place] [address] 01/22/2023 16:47:00 01/22/2023 18:17:08 Dysfunction of left eustachian tube [id number] 873781 H69.92 Health Concerns Section Related Observation LastModified by Organization Detai ls LastModified Time None Recorded Concern Status LastModified by Organization Details LastModified Time None Recorded Advance Directives Directive None Recorded Payers Insurance Date Sequence Insurance Name Policy Number Policy Huang Covered Member ID Huang Member ID Guarantor Name 01/22/2023 1 [facility] [id number] Vanessa Williamson [id number] Vanessa Williamson Notes Date Note Type Note Provider Name and Address Organization Details Recorded Time 3 text/html Ear Pain Brief HPIReported by PatientHPIFor quality, patient reportsaching painanddull painbut reportsno itching,no discharge from the ears, andno burning. For severity, patient reportsinterferes with daily activitiesbut reportsno fever,no interference with sleep, andgetting worse. For context, patient reportsrecent uribut reportsno recent trauma,no recent ear infection,no recent swimming,no immunocompromise,no dental problems,no recent airplane travel,no scuba diving, andnon-smoker. For associated symptoms, patient reportsnasal congestionandsense of fullness/pressurebut reportsno cough,no jaw popping or clicking,no decreased appetite,no discharge from ear,no nasal discharge,no hearing loss,no sore throat,no dental pain,no jaw pain,no tinnitus,no decreased hearing, andno muffled hearing. For location, patient reportsleft. For onset/timing, patient reportsnew onsetandstarted 2days ago. For duration, patient reportsoccurs dailyandconstant pain. For alleviating factors, patient reportsnasal steroid spray. For aggravating factors, patient reportscold weather,sinus infections, andallergies. Noé Coates NP [address] [place], [address], [place] - [facility] 12/15/2022 08:32:34 3 text/html Ear Pain Brief HPIReported by PatientHPIFor location, patient reportspain radiates to neckbut reportsbilateral. For quality, patient reportsaching painandsharp pain. For context, patient reportsrecent ear infection. For associated symptoms, patient reportscough,nasal congestion, andnasal discharge. For onset/timing, patient reportsintermittent painandgradual onset. For duration, patient reportsoccurs dailyandsensation/episod e variable length. For severity, patient reportsgetting worseandcurrent pain 5/10. For alleviating factors, patient reportsototopical antibiotics: ___andnasal steroid spray. For aggravating factors, patient reportssinus infections,allergies, andirrigation of ear. CongestionReported by Patientnasal congestion with post nasal drip x 3 days. denies nay fever or fever with chills. no SOB or respiratory distress. Noé Coates NP [address] [facility] [place], [address], [facility] 12/21/2022 08:18:21 3 text/html Ear Pain Brief HPIReported by PatientHPIFor onset/timing, patient reportssudden onset. For quality, patient reportsno itching,no discharge from the ears, andno burning. For severity, patient reportsno fever. For context, patient reportsno recent uri,no recent ear infection, andno recent swimming. For associated symptoms, patient reportsno cough,no jaw popping or clicking,no discharge from ear,no nasal congestion,no nasal discharge,no sense of fullness,no sore throat,no jaw pain,no tinnitus, andno decreased hearing. Kiana Seth NP [address] [place], [address], [place] - [facility] 01/22/2023 18:19:01 OBGyn Episode No OBEpisode recorded.
--- OUTSIDE RECORDS SUMMARY | 2025-05-02 10:46 | XMS_ITS | Clinical Summary ---
Author Organization [facility] Address [address] [place] [address] Phone Care Team Providers Care [employer] [address] Forms Name Role Phone Unknown, Unknown Primary Care Provider Robby winters Social History Tobacco Use Types Packs/Day Years Used Date Smoking Tobacco: Never Assessed Education Answer Date Recorded Are you interested in more education? Not on radha e 08/10/2023 Are you concerned about learning? Not on file 08/10/2023 No 08/10/2023 No 08/10/2023 Digital Access Answer Date Recorded No 08/10/2023 No 08/10/2023 Reliable internet access at home? Not on file 08/10/2023 Device with a working camera? Not on file Comments Unknown Sex and Gender Information Value Date Recorded Sex Assigned at Not on file Legal Sex Female 9:23 PM EDT Gender Identity Not on file Sexual Orientation Not on file Plan of Treatment Not on file Medical Devices Not on file [place] [address] [address] [place] [address] [facility] Care Teams [address] [employer] [address] Forms Relationship Specialty Start Date End Date Unknown, Unknown, PCP - General 08/09/23 Additional Source Comments The information contained in this document represents components of the legal health record. It is not the complete legal health record.[facility]
[2025-05-02 10:56] LABS: MANUAL DIFF FLAG NO
[2025-05-02 11:14] LABS: Hematocrit 41.8 % (37.0-47.0); Hemoglobin 14.0 g/dl (12.0-16.0); Imm Gran Abs Auto 0.02 X10*3/uL (0.00-0.03); Imm Gran Pct Auto 0.3 % (0.0-0.4); Lymphocytes Absolute Auto 2.4 X10*3/uL (1.2-4.9); Mean Corpuscular HGB Conc 33.5 g/dl (31.0-35.0); Mean Corpuscular Hemoglobin 28.6 pg (27.0-33.0); Mean Corpuscular Volume 85.3 fL (80.0-98.0); NRBC Abs Auto 0.000 X10*3/uL (0.0-0.012); NRBC Pct Auto 0.0 /100WBC (0.0-0.2); Platelet Count 331 X10*3/uL (160-400); Red Blood Count 4.90 X10*6/uL (4.20-5.50); White Blood Count 7.7 X10*3/uL (4.8-10.8)
[2025-05-02 11:55] LABS: Alanine Aminotransferase 33 U/L (0-31); Albumin Level 4.5 g/dL (3.5-5.0); Alkaline Phosphatase 90 U/L (39-117); Anion Gap 11 (12-20); Aspartate Amino Transferase 28 U/L (5-31); Blood Urea Nitrogen 12 mg/dL (9-16); Calcium 9.0 mg/dL (8.4-10.2); Carbon Dioxide 25 mmol/L (22-29); Chloride 108 mmol/L (96-108); Estimated Glomerular Filt Rate > 60; Potassium 4.0 mmol/L (3.3-5.1); Sodium 140 mmol/L (135-145); Total Protein 7.5 g/dL (6.5-8.0)
[2025-05-06 20:33] LABS: Lamotrigine Lamictal 1.8 mcg/mL (2.5-15.0)
== END 2025-05-02 10:44 | disposition home or self-care (01) ==
LOC: HO.LAB 10:43
PROVIDERS: PCP Family Medicine; Visit Provider Nurse Practitioner Family
DX: R56.9 Unspecified convulsions (principal)
CPT/HCPCS: 36415; 80053; 80175; 85025

== ENCOUNTER 2025-05-04 12:59 | Outpatient (AMB) | payer BC, SELFPAY ==
[2025-05-04 13:00] VITALS: BP 130/80; PULSE 81; O2SAT 97; BMI 33.4
--- NOTE | 2025-05-04 13:00 | A.OFFVIS_ITS ---
Vital Signs 05/04/25 13:00 Height 5 ft 9 in Weight 226 lb BMI 33.4 BP 130/80 Blood Pressure Location Rt brachial Position Sitting Pulse 81 Pulse Source Pulse Oximeter Pulse Oximetry (%) 97 Oxygen Delivery Method Room Air Intake Visit Reasons: 6 mnth Follow up Sexual Assault Response Coordinator Required: No Accompanied by: Self / Same As Patient Allergies Sulfa (Sulfonamide Antibiotics) Allergy (Mild, Verified 05/04/25 13:02) Hives Medication List - Last Reconciled 05/04/25 by CHARLES Robbins escitalopram oxalate 10 mg PO DAILY 90 days hydroxyzine HCl 10 mg PO BID PRN 30 days lamotrigine 100 mg PO BID 30 days methylphenidate HCl (Ritalin) 10 mg PO QPM 60 days methylphenidate HCl LA (Ritalin LA) 20 mg PO QAM 60 days HPI Comments Details: 44-yr-old female presents for f/u visit of sleep issues, seizures, ADHD. Pt denies any significant interval medical changes. She notes a different type of depression, which she reports is related to recent loss of her mom. Recent CBC and CMP WNL, lamotrigine level pending. She also notes some more difficulty with sleep and difficulty waking up. She maybe up later over the weekend. Her ADHD s/s are not as well controlled, due to thinking about her out-of-work requirements when at work. Currently on Methylphenidate LA 20mg qam and IR 10mg prn. She is still tolerating escitaloram well. She has not needed to use hydroxyzine recently, as she has not had any panic attacks. She continues to have vivid dreams- but no recent severe nightmares. The escitalopram still seems to have reduced the more bothersome bad dreams. She has not had any seizure like activity. She continues to work with her therapist. She did have a one-time psychiatry consult. [facility] Medical History Dyslipidemia Surgical History No pertinent past surgical history Family History Father HTN (hypertension) Mother Diabetes HTN (hypertension) Social History Alcohol intake: current Alcohol intake frequency: holidays/special occasions only Patient Tobacco Use Status: Never used Tobacco Physical Exam Vital Signs: Last Vital Signs Pulse 81 05/04/25 13:00 BP 130/80 05/04/25 13:00 Pulse Ox 97 05/04/25 13:00 Oxygen Delivery Method Room Air 05/04/25 13:00 BMI result Body Mass Index 33.4 Const General: cooperative and no acute distress Orientation/consciousness: patient oriented x3 Resp Effort & Inspection: normal respiratory effort and able to speak in complete sentences Neuro General: patient oriented x3 Cranial nerves: Yes CN's II-XII intact bilaterally Cognition (Neuro): normal cognition Psych Appearance: grossly normal Mental Status: mental status grossly normal Speech and movement: Normal speech and movement present Affect: normal affect Attitude: cooperative Assessment & Plan Assessment & Plan (1) Seizure: Code(s): R56.9 - Unspecified convulsions Category: Medical (2) Hypersomnia: Code(s): G47.10 - Hypersomnia, unspecified Category: Medical (3) Attention deficit hyperactivity disorder (ADHD): Code(s): F90.9 - Attention-deficit hyperactivity disorder, unspecified type Category: Medical Qualifiers: Attention deficit-hyperactivity disorder type: unspecified Qualified Code(s): F90.9 - Attention-deficit hyperactivity disorder, unspecified type (4) Depression: Code(s): F32.A - Depression, unspecified Category: Medical Qualifiers: Active/Remission status: currently active Depression Type: major depressive disorder Major depression episode severity: mild Major depression recurrence: recurrent Qualified Code(s): F33.0 - Major depressive disorder, recurrent, mild (5) Nightmares: Code(s): F51.5 - Nightmare disorder Category: Medical (6) Anxiety: Code(s): F41.9 - Anxiety disorder, unspecified Category: Medical Plan For hypersomnia/ADHD: Continue Methylphenidate LA 20mg qam. Continue Methylphenidate 10mg qpm prn. Consider trying a chelle stimulating alarm clock. Consider trying timers to limit distractions at work. ? For mood: Previously reviewed [facility] psychiatry consult. Discontinue Escitalopram 10mg qd order. Start escitalopram 15 mg daily, then in 2 weeks if well tolerated, increase to 20 mg daily Continue Hydroxyzine 10mg bid prn anxiety/panic attacks. ? For seizures: Continue Lamotrigine 100mg bid. Recent CBC, CMP- WNL Recent lamotrigine level- pending Patient will reach out to update us on her status when she is due for refill on her escitalopram. Pt to follow-up in 6 months or sooner prn. Medications: Changed From escitalopram oxalate early refill- due to the current supply ruined by water exposure 10 mg PO DAILY 90 days 90 tabs 1RF To escitalopram oxalate 20 mg (2 x 10 mg) PO DAILY 180 tabs 1RF 90 days Coding Level of Care Code Est Pt Level 4 (85441) Diagnoses Seizure R56.9 Hypersomnia G47.10 Attention deficit hyperactivity disorder (ADHD), unspecified ADHD type F90.9 Attention deficit-hyperactivity disorder type: unspecified Mild episode of recurrent major depressive disorder F33.0 Active/Remission status: currently active Depression Type: major depressive disorder Major depression episode severity: mild Major depression recurrence: recurrent Nightmares F51.5 Anxiety F41.9
--- OUTSIDE RECORDS SUMMARY | 2025-05-04 16:28 | XMS_ITS | Data Portability ---
Author Organization [facility], [address] Address [address] [place] [address] Assessment No assessment recorded. Plan of Treatment Reminders Order Date Submit Date Provider Last Modified By Organization Details Last Modified Time Details Appointments None recorded. Lab None recorded. Referral otolaryngol ogist referral - Ongoing ear pain , has been treated with antibiotic and steroid in the past 2022 023 [email or web address] [facility] , [address], [facility] [address], [place], [address], 3 18:17:09 Procedures None recorded. Surgeries None recorded. Imaging None recorded. Medication Orders amoxicillin 875 mg-potassiu m clavulanate 125 [address] tablet [address] [facility]/Pharmacy #[id number], [phone] [place], [address], 3 08:17:34 fexofenadin e-pseudoeph edrine ER 180 mg-240 mg tablet,ext. release [address] [facility]/Pharmacy #[id number], [phone] [place], [address], 3 08:32:20 prednisone 20 mg tablet [address] [facility]/Pharmacy #1130, [phone] [place], [address], 3 08:32:19 Allergy Relief (fluticason e) 50 mcg/actuati on nasal spray,suspe nsion [address] [facility]/Pharmacy #[id number], [phone] [place], [address], 08:32:19 Patient TargetsNo targets recorded. Patient Instructions Encounter Date Encounter Id Patient Instructions Last Modified By Organization Details Last Modified Time 12/15/2022 [id number] earache: care instructions Not available 12/15/2022 08:32:16 [...] care for yourself at home? Take an vezx-ojq-bthytgx pain medicine. Avoid Ibuprofen, Aleve and Aspirin if . If the doctor prescribed antibiotics, take them as directed. Do not stop taking them just because you feel better. You need to take the full course of antibiotics. Be careful when taking sfqu-avn-ujfscrj cold or influenza (flu) medicines and Tylenol [...] congestion worse. Not available 12/15/2022 08:32:14 12/21/2022 [id number] earache: care instructions [email or web address] Not available 12/21/2022 [...] taking a prescription pain medicine, take an omqr-rhr-inkukxv medicine, such as acetaminophen (Tylenol), ibuprofen (Advil, [...] care for yourself at home? Take an ptbd-mke-putczog pain medicine. Avoid Ibuprofen, Aleve and Aspirin if . If the doctor prescribed antibiotics, take them as directed. Do not stop taking them just because you feel better. You need to take the full course of antibiotics. Be careful when taking fovc-kfd-zzxyawu cold or influenza (flu) medicines and Tylenol [...] congestion worse. Not available 12/21/2022 08:17:31 01/22/2023 [id number] eustachian tube problems: care instructions [email or web address] Not available 01/22/2023 18:13:00 Based on your physical exam and presentation, you are being diagnosed with Eustachian Tube Dysfunction. This occurs when fluid/mucous or swelling closes off the tubes that help the ears equalize the pressure. The following are my recommendations to help with these symptoms and get this condition to resolve: 1. Saline Nasal [place] 2. Antihistamines like Claritin, Zyrtec, Addis, or [...] be placed temporarily. Thank you for using [facility], if you have any questions or concerns please do not hesitate to call or reach out to us. 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 Medical Equipment None Reported. Allergies Allergen ID Allergen Name Allergen Category Reaction Reaction Severity Criticality Documentation Date Start Date Code Code System Note Provider Name and Address Organization Details Recorded Time 067968 Substance with sulfonami de structure and antibacte rial mechanism of action (substanc e) medicatio n rash Not available Not available 12/15/2022 41832 [id number] SNOMED BERNARD Asher [facility] 3 [...] DateTime 3 2 177.8 cm 30.1 kg/m2 42196.4 g 100 % 100 % 70 /min [...] Updated DateTime 3 177.8 cm 30.1 kg/m2 47209.4 g 2 100 % 100 % 77 /min 18 /min 98 [degF] 133/86 mm[Hg] VAL GOODE [employer] - [facility] 3 08:09:48 Date Recorded Body height Body mass index (BMI) Body weight Pain severity - 0-10 verbal numeric rating [Score] - Reported Respiratory rate Oxygen saturation Oxygen saturation in Arterial blood by Pulse oximetry Heart rate Body temperature Systolic And Diastolic Provider Name and Address Organization Details Last Updated DateTime 3 177.8 cm 30.1 kg/m2 44507.4 g 4 19 /min 99 % 99 % 77 /min 98 [degF] 130/80 mm[Hg] JULIET SUAREZ [employer] [facility] 3 17:48:24 Social History Question Answer Notes LastModified by [employer] Details LastModified Time Tobacco Smoking Status Never Smoker VAL INMANLINO jones [employer] - [facility] 12/15/2022 08:24:26 Have You Recently Traveled Abroad? No Information not available 12/15/2022 Sex: Unknown Functional Status Question Answer Note LastModified by [employer] Details LastModified Time How many times per [...] ICD10 Code Diagnosis IMO Codes Diagnosis Note [id number] [address] [facility] [address] [address] [place] [address] 05/26/2016 12:28:54 05/26/2016 13:50:14 [id number] Noé Coates NP [address] [facility] [address] [place] [address] 12/15/2022 08:17:40 12/15/2022 08:34:22 Acute sinusitis 31555565 J01.90 [id number] Noé Coates NP [address] [facility] [facility] [address] [place] [address] 12/21/2022 08:03:44 12/21/2022 08:24:32 Acute sinusitis 19748012 J01.90 Acute sero us otitis media of bilateral ears [id number] 089535 H65.03 [id number] [place] [address] [facility] [address] [facility] [place] [address] 01/22/2023 16:47:00 01/22/2023 18:17:08 Dysfunction of left eustachian tube [id number] 104489 H69.92 Health Concerns Section Related Observation LastModified by Organization Detai ls LastModified Time None Recorded Concern Status LastModified by Organization Details LastModified Time None Recorded Advance Directives Directive None Recorded Payers Insurance Date Sequence Insurance Name Policy Number Policy Huang Covered Member ID Huang Member ID Guarantor Name 01/22/2023 1 [facility] [id number] Vanessa Williamson [id number] Vanessa Williamson Notes Date Note Type [...] Coates NP [address] [place], [address], [place] - [facility] 12/15/2022 08:32:34 3 [...] or respiratory distress. Noé Coates NP [address] [facility] [place], [address], [employer] - [employer] 12/21/2022 08:18:21 3 text/html Ear Pain Brief [...] Kiana Seth NP [address] [place], [address], [place] - [facility] 01/22/2023 18:19:01 OBGyn Episode No OBEpisode recorded.
--- OUTSIDE RECORDS SUMMARY | 2025-05-04 16:28 | XMS_ITS | Clinical Summary ---
Author Organization [facility] Address [address] [place] [address] Phone Care Team Providers Care Bar Host/Hostess Name Role Phone Unknown, Unknown Primary Care [...] file Medical Devices Not on file [place] [address] [id number] [facility] Care Teams Bar Host/Hostess Relationship Specialty Start Date End Date Unknown, Unknown, PCP - General 08/09/23 Additional Source Comments The information contained in this document represents components of the legal health record. It is not the complete legal health record.[facility]
== END 2025-05-04 14:03 | disposition home or self-care (01) ==
LOC: HO.HSMS 12:59
PROVIDERS: Visit Provider Nurse Practitioner Family
DX: R56.9 Unspecified convulsions (principal); G47.10 Hypersomnia, unspecified; F90.9 Attention-deficit hyperactivity disorder, unspecified type; F33.0 Major depressive disorder, recurrent, mild; F51.5 Nightmare disorder; F41.9 Anxiety disorder, unspecified
CPT/HCPCS: 99214